=== PATIENT | male | born 1960 | race Caucasian/White ===

== ENCOUNTER 2018-12-30 17:20 | Emergency (ER) | payer MEDICAID ==
[~2018-12-30] VITALS: Wt 72.9 kg
[2018-12-30] MEDS ORDERED: NIFEdipine 10 MG CAP PO ONE (19:00)
[2018-12-30 19:25] VITALS: BP 138/73; PULSE 92; RESP 18
[2018-12-30] MEDS ORDERED: HYDR25TA6 PO (19:51)
--- NOTE | 2018-12-30 19:55 | ERD ---
ER Documentation Chief Complaint Chief Complaint lion ROS All systems reviewed and are negative except as per history of present illness. Medications Home Meds Active Scripts Hydrochlorothiazide* (Hydrochlorothiazide*) 25 Mg Tab, 12.5 MG PO DAILY for high blood pressure, #30 TAB Prov:MADYSON APPIAH DO 12/30/18 Allergies Allergies: Coded Allergies: No Known Allergy (Unverified , 12/30/18) PMhx/Soc Medical and Surgical Hx: pt denies Medical Hx, pt denies Surgical Hx Hx Miscellaneous Medical Probl: Yes (HTN, HYPERTHYROID) Hx Alcohol Use: No Hx Substance Use: No Hx Tobacco Use: No Smoking Status: Never smoker Physical Exam Vitals Vital Signs Date Temp Pulse Resp B/P (MAP) Pulse Ox O2 O2 Flow FiO2 Time Delivery Rate 12/30/18 98.8 92 18 138/73 99 Room Air 19:25 (94) 12/30/18 98.4 103 20 188/110 98 17:37 (136) Physical Exam Const: No acute distress Head: Atraumatic Eyes: Normal Conjunctiva ENT: Normal External Ears, Nose and Mouth. Neck: Full range of motion. No meningismus. Resp: Clear to auscultation bilaterally Cardio: Regular rate and rhythm, no murmurs Abd: Soft, non tender, non distended. Normal bowel sounds Skin: No petechiae or rashes Back: No midline or flank tenderness Ext: No cyanosis, or edema Neur: Awake and alert Psych: Normal Mood and Affect Result Diagram: 12/30/18189912/30/181899 Results 24 hrs Laboratory Tests Test 12/30/18 19:00 White Blood Count 6.3 10^3/ul Red Blood Count 4.88 10^6/ul Hemoglobin 14.2 g/dl Hematocrit 41.4 % Mean Corpuscular Volume 84.8 fl Mean Corpuscular Hemoglobin 29.1 pg Mean Corpuscular Hemoglobin Concent 34.3 g/dl Red Cell Distribution Width 13.4 % Platelet Count 242 10^3/UL Mean Platelet Volume 9.5 fl Immature Granulocytes % 0.300 % Neutrophils % 74.3 % Lymphocytes % 19.1 % Monocytes % 4.9 % Eosinophils % 1.1 % Basophils % 0.3 % Nucleated Red Blood Cells % 0.0 /100WBC Immature Granulocytes # 0.020 10^3/ul Neutrophils # 4.7 10^3/ul Lymphocytes # 1.2 10^3/ul Monocytes # 0.3 10^3/ul Eosinophils # 0.1 10^3/ul Basophils # 0.0 10^3/ul Nucleated Red Blood Cells # 0.0 10^3/ul Sodium Level 142 mmol/L Potassium Level 4.4 mmol/L Chloride Level 107 mmol/L Carbon Dioxide Level 21 mmol/L Anion Gap 14 Blood Urea Nitrogen 21 mg/dl Creatinine 2.04 mg/dl Est Glomerular Filtrat Rate mL/min 34 mL/min Glucose Level 83 mg/dl Calcium Level 9.9 mg/dl Total Bilirubin 0.3 mg/dl Direct Bilirubin 0.00 mg/dl Indirect Bilirubin 0.3 mg/dl Aspartate Amino Transf (AST/SGOT) 19 IU/L Alanine Aminotransferase (ALT/SGPT) 8 IU/L Alkaline Phosphatase 83 IU/L Total Protein 9.0 g/dl Albumin 4.8 g/dl Globulin 4.20 g/dl Albumin/Globulin Ratio 1.14 Current Medications Medications Dose Sig/Hugo Start Time Status Last (Trade) Ordered Route PRN Stop Time Admin Dose Reason Admin Nifedipine 20 mg ONCE ONCE 12/30/18 DC 12/30/18 (Procardia) PO 19:00 18:44 12/30/18 19:01 Departure Diagnosis: Primary Impression: Hypertensive urgency Additional Impression: Kidney failure Renal failure chronicity: unspecified chronicity Qualified Codes: N19 - Unspecified kidney failure Condition: Fair Patient Instructions: Hypertension, Established, Out Of Control Referrals: [facility] YOU HAVE RECEIVED A MEDICAL SCREENING EXAM AND THE RESULTS INDICATE THAT YOU DO NOT HAVE A CONDITION THAT REQUIRES URGENT TREATMENT IN THE EMERGENCY DEPARTMENT. FURTHER EVALUATION AND TREATMENT OF YOUR CONDITION CAN WAIT UNTIL YOU ARE SEEN IN YOUR DOCTORS OFFICE WITHIN THE NEXT 1-2 DAYS. IT IS YOUR RESPONSIBILITY TO MAKE AN APPOINTMENT FOR FOLOW-UP CARE. IF YOU HAVE A PRIMARY DOCTOR --you should call your primary doctor and schedule an appointment IF YOU DO NOT HAVE A PRIMARY DOCTOR YOU CAN CALL OUR PHYSICIAN REFERRAL HOTLINE AT IF YOU CAN NOT AFFORD TO SEE A PHYSICIAN YOU CAN CHOSE FROM THE FOLLOWING [facility] [address] [facility] [address] [facility] [address] [facility] [address] [facility]. [facility] [address] [facility]. [facility] [address] Additional Instructions: Call your primary care doctor TOMORROW for an appointment during the next 1-2 days.See the doctor sooner or return here if your condition worsens before your appointment time. Repeat blood pressure with primary provider in 2-3 days. Recommend checking blood pressure at home regularly and recommend taking medicat ion for high blood pressure. MADYSON APPIAH DO Dec 30, 2018 19:55
== END 2018-12-30 20:30 | disposition home or self-care (01) ==
LOC: FTE 17:20
DX: I16.0 Hypertensive urgency (principal); N19 Unspecified kidney failure; I10 Essential (primary) hypertension
CPT/HCPCS: 80053; 85025; 93005; Z7502; Z7610